=== PATIENT | female | born 1965 | race Caucasian/White ===

== ENCOUNTER 2017-02-07 16:15 | Emergency (ER) | payer SELFPAY ==
[2017-02-07] MEDS ORDERED: Lidocaine 5% Patch TD STA (16:36)
[2017-02-07] MEDS ORDERED: Lidocaine 5% Patch TD ONE (17:01)
[2017-02-07 17:39] LABS: HCG,QUALITATIVE URINE NEGATIVE (NEGATIVE)
--- NOTE | 2017-02-07 17:56 | C.PDOC ---
History Of Present Illness 51 y/o female presents to the ED with her daughter for evaluation of mid to low back pain which began around 1 week ago. Patient notes her pain is exacerbated with sitting and laying down. Patient states she last experienced a similar pain last winter, while she was shoveling snow. She denies fever, chills, hematuria, dysuria, abdominal pain, urinary/bowel incontinence, extremity numbness/weakness, recent falls, or direct falls/trauma to the affected area. Time Seen by Provider: 02/07/17 16:25 Chief Complaint (Nursing): Back Pain History Per: Patient, Family (daughter) History/Exam Limitations: language barrier Onset/Duration Of Symptoms: Other (1 week ) Current Symptoms Are (Timing): Still Present Quality Of Discomfort: "Pain" Previous Symptoms: Back Pain Associated Symptoms: denies: Incontinence, New Weakness, New Numbness Additional History Per: Patient, Family Past Medical History Reviewed: Historical Data, Nursing Documentation, Vital Signs Vital Signs: Last Vital Signs Temp 98 F 02/07/17 18:57 Pulse 63 02/07/17 18:57 Resp 20 02/07/17 18:57 BP 121/79 02/07/17 18:57 Pulse Ox 100 02/07/17 18:57 - Medical History PMH: No Chronic Diseases Surgical History: Appendectomy Family History: States: Unknown Family Hx - Social History Hx Alcohol Use: No Hx Substance Use: No - Immunization History Hx Tetanus Toxoid Vaccination: No Hx Influenza Vaccination: No Hx Pneumococcal Vaccination: No Review Of Systems Constitutional: Negative for: Fever, Chills Gastrointestinal: Negative for: Abdominal Pain Genitourinary: Negative for: Dysuria, Incontinence, Hematuria Musculoskeletal: Positive for: Back Pain Neurological: Negative for: Weakness, Numbness Physical Exam - Physical Exam Appears: Non-toxic, No Acute Distress Skin: Normal Color, Warm, Dry Head: Atraumatic, Normacephalic Eye(s): bilateral: Normal Inspection Oral Mucosa: Moist Neck: Supple Chest: Symmetrical Back: Vertebral Tenderness (mid-thoracic/lumbar region, left>right) Extremity: Normal ROM, Capillary Refill (less than 2 seconds ) Neurological/Psych: Normal Speech, Normal Cognition Gait: Steady ED Course And Treatment O2 Sat by Pulse Oximetry: 99 (on RA) Pulse Ox Interpretation: Normal Medical Decision Making Medical Decision Making: Impression: 51 y/o female with back pain Plan: * UA * Flexeril PO * Lidoderm 5% TD * Motrin PO * Tylenol PO * reassess and disposition Progress: UA ordered and reviewed negative. Flexeril PO, Lidoderm 5% TD, Motrin PO, Tylenol PO. Upon re-evaluation, patient reports pain continues, gabapentin ordered and she is requesting xray. LS xray ordered and reviewed showing no disease Disposition Counseled Patient/Family Regarding: Diagnosis, Need For Followup, Rx Given - Disposition Referrals: [facility] [Outside] [facility] [Outside] Disposition: HOME/ ROUTINE Disposition Time: 18:53 Condition: STABLE Additional Instructions: Follow up with your primary medical doctor or clinic in 2-5 days for further evaluation. Take medications as prescribed. Return to the emergency department at any time if symptoms persist or worsen. 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 - Scribe Statement The provider has reviewed the documentation as recorded by the Scribe (Kandace Maldonado) All medical record entries made by the Scribe were at my direction and personally dictated by me. I have reviewed the chart and agree that the record accurately reflects my personal performance of the history, physical exam, medical decision making, and the department course for this patient. I have also personally directed, reviewed, and agree with the discharge instructions and disposition.
[2017-02-07 18:02] LABS: SQUAMOUS EPITHIAL 4 /hpf (0-5); URINE BACTERIA RARE (<OCC); URINE BILIRUBIN NEGATIVE (NEGATIVE); URINE BLOOD 2+ (NEGATIVE); URINE CLARITY Clear (Clear); URINE COLOR Straw (YELLOW); URINE GLUCOSE (UA) NORMAL (Normal); URINE LEUKOCYTE ESTERASE NEG Leu/uL (Negative); URINE NITRATE NEGATIVE (NEGATIVE); URINE PROTEIN NEGATIVE (NEGATIVE); URINE UROBILINOGEN NORMAL mg/dL (0.2-1.0)
[2017-02-07 19:02] VITALS: BP 121/79; PULSE 63; RESP 20; TEMP 98
[2017-02-07 20:01] VITALS: O2SAT 99
--- NOTE | 2017-02-08 08:18 | RAD ---
PROCEDURE: Radiographs of the Lumbar Spine. HISTORY: pain low back COMPARISON: No prior. FINDINGS: BONES: Normal alignment. No listhesis. No fracture. DISC SPACES: Mild degenerative disc changes and small osteophyte formation seen. OTHER FINDINGS: Moderate constipation. IMPRESSION: No evidence of acute fracture or subluxation. Mild degenerative changes. Moderate constipation.
== END 2017-02-07 19:02 | disposition home or self-care (01) ==
LOC: C.ER 16:15
DX: M54.5 Low back pain (principal)